=== PATIENT | male | born 1955 | race Caucasian/White ===

== ENCOUNTER 2021-08-11 08:50 | Day surgery (SDC) | payer OTHER, MEDICAID ==
[~2021-08-11] VITALS: Ht 170.2 cm; Wt 64.9 kg
[2021-08-11] MEDS ORDERED: NS IRRIG SOLN 1000 ML IR ONE (08:51)
[2021-08-11] MEDS ORDERED: ARTICAINE HCL/EPINEPHRINE 4%/1:200,000 BIT 1.7 ML CARTRIDGE IJ ONE (08:51)
[2021-08-11] MEDS ORDERED: BENZOCAINE 20% GEL 32 GM BOTTLE MM ONE (08:51)
[2021-08-11] MEDS ORDERED: NS 250 ML BAG IV ONE (08:51)
[2021-08-11 14:50] VITALS: BP_SYST 148
== END 2021-08-11 15:15 | disposition home or self-care (01) ==
LOC: SDS 08:50 → SMU 08:57 → SDS 15:15
PROVIDERS: ATTEND Dentist General Practice
DX: M27.2 Inflammatory conditions of jaws (principal); K05.6 Periodontal disease, unspecified; M89.8X0 Other specified disorders of bone, multiple sites; M26.603 Bilateral temporomandibular joint disorder, unspecified; G47.33 Obstructive sleep apnea (adult) (pediatric); K05.223 Aggressive periodontitis, generalized, severe; K12.2 Cellulitis and abscess of mouth; M05.80 Other rheumatoid arthritis with rheumatoid factor of unspecified site; E55.9 Vitamin D deficiency, unspecified; K21.9 Gastro-esophageal reflux disease without esophagitis; G47.00 Insomnia, unspecified; Z20.822 Contact with and (suspected) exposure to COVID-19; Z79.899 Other long term (current) drug therapy
CPT/HCPCS: 21026; 21210; 21248; 36415; 70140; 82962; 87426; C1713 ×2; J7050